=== PATIENT | female | born 1995 | race American Indian/Alaskan Native ===

== ENCOUNTER 2021-06-13 19:58 | Emergency (ER) | payer SELFPAY ==
--- NOTE | 2021-06-13 20:26 | Event Note ---
ED Screening Note ED Screening Note: Patient is a 26-year-old female presents emergency room complaints of chest heaviness and occasional shortness of breath that began a week ago states that she experienced it again today while she was in the grocery store she is currently asymptomatic she denies any pleuritic pain she denies any cough, fever, nausea, vomiting, diarrhea, leg swelling, recent travel, recent surgery, sick contacts, hormone use she has not been vaccinated for COVID-19 no medical history no allergies to medicines non-smoker she states her last menstrual cycle was last month, she states that she does not know if she is or not This initial assessment/diagnostic orders/clinical plan/treatment(s) is/are subject to change based on patients health status, clinical progression and re- assessment by fellow clinical providers in the ED. Further treatment and workup at subsequent clinical providers discretion. Patient/guardian urged not to elope from the ED as their condition may be serious if not clinically assessed and managed. Initial orders include: Urine , x-ray, EKG
[2021-06-13 20:59] VITALS: BP 126/63
[2021-06-13 21:32] LABS: HCG Qualitative,Urine Negative (Negative)
--- NOTE | 2021-06-13 21:34 | Emergency Department Report ---
ED General Adult HPI - General Chief complaint: Chest Pain Stated complaint: HEAVINESS IN CHEST/STU Time Seen by Provider: 06/13/21 20:24 Source: patient Mode of arrival: Ambulatory Limitations: No Limitations - History of Present Illness Initial comments: 26-year-old female patient presents to the emergency department with complaints of chest pain with associated shortness of breath starting 1 week ago. Patient states her symptoms are episodic in nature without identifiable pattern. Chest pain is described as "heaviness," worse with lying supine, improved with sitting upright. No history of similar symptoms. No venous thromboembolism risk factors identified on history. No recent illnesses. No history of diabetes, hypertension, hyperlipidemia. No tobacco use. No family history of early heart disease. Denies fever, chills, cough, wheezing, nausea, vomiting, diaphoresis, palpitations, syncope, lower extremity pain/swelling. Denies all other complaints at this time. Severity scale (0 -10): 0 - Related Data Previous Rx's Medication Instructions Recorded Last Taken Type Naproxen 500 mg PO BID #20 tablet 06/13/21 Unknown Rx Allergies Allergy/AdvReac Type Severity Reaction Status Date / Time Penicillins Allergy Unknown Verified 06/13/21 20:24 ED Review of Systems ROS: Stated complaint: HEAVINESS IN CHEST/STU Other details as noted in HPI Other: GENERAL: Negative for fever, chills, weight change, anorexia, fatigue. ENT: Negative for ear pain, difficulty hearing, sore throat, nasal congestion, epistaxis. CARDIOVASCULAR: Positive for chest pain. PULMONARY: Positive for shortness of breath. GASTROINTESTINAL: Negative for abdominal pain, nausea, vomiting, diarrhea, constipation. MUSCULOSKELETAL: Negative for joint pain, joint swelling, myalgias, back pain, neck pain. NEUROLOGICAL: Negative for headache, seizure, syncope, paresthesias, weakness. INTEGUMENTARY: Negative for erythema, rash, diaphoresis, laceration, ecchymosis. HEMATOLOGICAL: Negative for hemoptysis, hematemesis, hematochezia, hematuria. PSYCHIATRIC: Negative for hallucinations, suicidal ideation, homicidal ideation, anxiety, depression. ED Past Medical Hx - Past Medical History Previous Medical History?: No - Surgical History Past Surgical History?: Yes Additional Surgical History: Tonsil - Medications Home Medications: Home Medications Medication Instructions Recorded Confirmed Last Taken Type Naproxen 500 mg PO BID #20 tablet 06/13/21 Unknown Rx ED Physical Exam - General Limitations: No Limitations - Other Other exam information: General: Awake and alert. No acute distress. Head: Atraumatic, normocephalic. Eyes: EOMI. Pupils are equal and round. Normal sclera and conjunctiva. ENT: Oral mucosa is moist. Normal pharyngeal exam. Neck: Supple. No lymphadenopathy. Pulmonary: No respiratory distress. Clear to auscultation bilaterally. Cardiac: Regular rate and rhythm. Pulses are palpable and equal bilaterally. No lower extremity cyanosis or edema. Skin: Warm and dry. No rashes. Abdomen: Soft, non-tender, non-protuberant. No guarding, rigidity, or rebound. Bowel sounds are normal. No organomegaly or masses noted. Back: Normal alignment. No CVA tenderness. Extremities: Symmetrical. Full range of motion intact. Neurological: Alert and oriented, appropriately interactive, no focal deficits. Psych: Cooperative. Appropriate mood and affect. Speech is evenly metered. Thoughts are logically construed. ED Course Vital Signs 06/13/21 06/13/21 20:59 22:30 Temperature 99.0 F Pulse Rate 70 59 L Respiratory 16 16 Rate Blood Pressure 126/63 [Left] O2 Sat by Pulse 100 100 Oximetry ED Medical Decision Making - EKG Data 06/13/21 21:36 EKG shows normal sinus rhythm with a ventricular rate of 66 bpm. Normal axis. Normal FL interval. Normal QT interval. Good R wave progression. No ST segment changes. Over read by attending emergency physician, who agrees with this interpretation. - Medical Decision Making Differential diagnosis including but not limited to: pneumothorax, pericarditis, pericardial effusion, valvular disease, myocarditis, pulmonary embolism Patient presents to the emergency department with signs and/or symptoms that arise low risk clinical suspicion for pulmonary embolism. The patient has none of the following clinical criteria: age >50, heart rate >100, room air O2 saturation <94%, history of DVT/PE, recent trauma/surgery, hemoptysis, exogenous estrogen, or signs/symptoms of DVT. As a result, this patient has very low probability of pulmonary embolism and further testing is not indicated. On reevaluation, patient remains stable and asymptomatic. EKG without acute injury pattern or evidence of pericarditis. Chest x-ray is negative. test is negative. Exceedingly low clinical suspicion for acute coronary syndrome given patient's age and absence of risk factors. She is afebrile, hemodynamically stable, no hypoxia, no respiratory distress. Etiology of emerald le's chest pain remains unclear however there is no clinical indication for further diagnostic work-up on an emergent basis at this time. Patient will be discharged home with appropriate analgesics and referral to primary care provider for close outpatient follow-up. Patient expressed understanding and is agreeable to plan of care. Strict return precautions provided. Repeat exam is unremarkable and benign. History, exam, diagnostic testing, and current condition do not suggest worrisome pathology to warrant further testing, continued ED treatment, admission, or surgical evaluation at this point. Given the low probability of a significant medical illness, it would be more likely to result in harm than benefit to perform further testing at this stage. Discussed findings, presumptive diagnosis, need for follow-up and specific signs/symptoms that should prompt immediate return to the emergency department. Instructions were explained in detail to the patient in addition to giving written discharge information. Patient expressed understanding and was given the opportunity to ask questions, all of which were satisfactorily answered prior to discharge home. Critical care attestation.: If time is entered above; I have spent that time in minutes in the direct care of this critically ill patient, excluding procedure time. ED Disposition Clinical Impression: Nonspecific chest pain Disposition: DC-01 TO HOME OR SELFCARE Is pt being admited?: No Does the pt Need Aspirin: No Condition: Stable Instructions: Nonspecific Chest Pain, Adult, Nonspecific Chest Pain, Adult, [id number] Additional Instructions: Take Tylenol every 4 hours as needed for pain. Take Naprosyn twice daily with food as needed for pain. Follow-up with primary care provider this week. Call tomorrow to schedule an appointment. See referral information below. Return to the emergency department immediately for new or worsening symptoms. Specifically, return to the emergency department immediately for fever, worsening pain, difficulty breathing, palpitations, loss of consciousness, or any other concerns. Prescriptions: Naproxen 500 mg PO BID #20 tablet Referrals: AMINAH DUNNE MD [Staff Physician] - 3-5 Days [facility] [Provider Group] - 3-5 Days Time of Disposition: 22:24
--- NOTE | 2021-06-13 22:09 | XRay Report ---
CHEST 2 VIEWS INDICATION / CLINICAL INFORMATION: chest heaviness, SOB. COMPARISON: None available. FINDINGS: SUPPORT DEVICES: None. HEART / MEDIASTINUM: No significant abnormality. LUNGS / PLEURA: No significant pulmonary or pleural abnormality. No pneumothorax. ADDITIONAL FINDINGS: No significant additional findings. IMPRESSION: 1. No acute findings. Signer Name: Damián Flores MD Signed: 06/13/2021 10:05 PM Workstation Name: [id number]
--- NOTE | 2021-06-14 14:33 | Electrocardiograph Report ---
[facility] Test Date: 2021-06-13 Test Time: 20:35:48 Pat Name: SOLANGE TRAORE Department: Room: Gender: F General Farm Manager: HARVEY : 1995 Requested By: CHARLIE BALES Order Number: [id number] Reading MD: Sienna Griffiths Measurements Intervals [place] Rate: 66 P: -12 NH: 149 QRS: 73 QRSD: 90 T: 41 QT: 389 QTc: 407 Interpretive Statements Sinus rhythm Abnormal T, consider ischemia, anterior leads No previous ECG available for comparison Electronically Signed On 06-14-2021 14:32:52 EDT by Sienna Griffiths
== END 2021-06-13 22:30 | disposition home or self-care (01) ==
LOC: ED 19:58
DX: R07.9 Chest pain, unspecified (principal); R06.02 Shortness of breath
CPT/HCPCS: 71046; 81025; 93005; 99283